=== PATIENT | female | born 1970 | race Caucasian/White ===

== ENCOUNTER 2017-04-03 22:29 | Emergency (ER) | payer OTHER ==
[~2017-04-03 22:29] MED LIST: NORCO 5-325 TA1 EACH PO; PHENERGAN 25 MG25 M1 PO
== END 2017-04-04 00:45 | disposition home or self-care (01) ==
LOC: ER1 22:29
DX: S60.012A Contusion of left thumb without damage to nail, initial encounter (principal); W23.0XXA Caught, crushed, jammed, or pinched between moving objects, initial encounter
CPT/HCPCS: 73130; 90471; 90715; 99283

== ENCOUNTER 2021-02-08 18:00 | Emergency (ER) | payer OTHER ==
[~2021-02-08 18:00] MED LIST changes: +FLEXERIL 10 MG10 MG PO; +IBUPROFEN600 MG PO; +PERCOCET 5/325 T1 EA PO; +ZOFRAN4 MG PO
[2021-02-08 19:27] LABS: HEMOGLOBIN 13.2 gm/dl (12.3-15.3); RED BLOOD COUNT 4.51 M/UL (4.00-5.10); WHITE BLOOD COUNT 8.2 K/UL (4.5-11.0)
[2021-02-08 19:46] LABS: BUN/CREATININE RATIO 20 (0-10)
[2021-02-08] MEDS ORDERED: K-DUR TAB 20 M20 MEQ PO (21:47)
== END 2021-02-08 22:08 | disposition home or self-care (01) ==
LOC: ER1 18:00
PROVIDERS: Physician Assistant
DX: K52.9 Noninfective gastroenteritis and colitis, unspecified (principal)
CPT/HCPCS: 71045; 80053; 82550; 82553; 83735; 83874; 84439; 84443; 84484; 85025; 93005; 99284

== ENCOUNTER 2021-02-28 22:33 | Emergency (ER) | payer OTHER ==
[~2021-02-28 22:33] MED LIST changes: +K-DUR TAB 20 M20 MEQ PO
== END 2021-03-01 01:34 | disposition home or self-care (01) ==
LOC: ER1 22:33
DX: R03.0 Elevated blood-pressure reading, without diagnosis of hypertension (principal); Z85.3 Personal history of malignant neoplasm of breast; F17.290 Nicotine dependence, other tobacco product, uncomplicated
CPT/HCPCS: 99283

== ENCOUNTER 2022-02-11 11:52 | Emergency (ER) | payer OTHER ==
[~2022-02-11] VITALS: Ht 170.2 cm; Wt 117.9 kg
[2022-02-11 12:50] LABS: HEMOGLOBIN 13.3 gm/dl (12.3-15.3); RED BLOOD COUNT 4.56 M/UL (4.00-5.10); WHITE BLOOD COUNT 6.6 K/UL (4.5-11.0)
[2022-02-11 13:16] LABS: BUN/CREATININE RATIO 27 (0-10)
[2022-02-12] MEDS ORDERED: SERTRALINE HCL50 MG PO (10:22)
== END 2022-02-12 11:58 ==
LOC: ER1 11:52
PROVIDERS: Emergency Medicine
DX: R42 Dizziness and giddiness (principal); I10 Essential (primary) hypertension; F41.9 Anxiety disorder, unspecified; Z20.822 Contact with and (suspected) exposure to COVID-19; Z90.710 Acquired absence of both cervix and uterus; Z85.3 Personal history of malignant neoplasm of breast
CPT/HCPCS: 70450; 70496; 70498; 71045; 71046; 80053; 80061; 82550; 82553; 84484; 85025; 85610; 85730; 93005; 96374; 99285; J0360; J0696; Q9967; U0002